=== PATIENT | female | born 1945 | race Caucasian/White ===

== ENCOUNTER 2018-06-10 21:54 | Emergency (ER) | payer OTHER, MEDICAID ==
[~2018-06-10] VITALS: Ht 152.4 cm; Wt 69.4 kg
[2018-06-10 22:07] VITALS: BP 108/61
--- NOTE | 2018-06-10 22:07 | NUR ---
TO BED # 06 AMBULATORY, REPORT GIVEN TO CAT NGUYEN
--- NOTE | 2018-06-10 22:07 | NUR ---
PT PRESENTS TO ED WITH HEAD ACHE AND BILAT EAR PAIN X12 HRS. NO N/V, NO DIZZINESS. PAIN UNRELIEVED WITH HOME MEDICATIONS. 10/02 PAIN. A&OX4. VSS. ER MD AWARE. POSITOINED IN BED FOR COMFORT. CONTINUE TO MONITOR.
[2018-06-11] MEDS ORDERED: KETOROLAC 60 MG/2 ML VIAL IM ONE
[2018-06-11] MEDS ORDERED: PENICILLIN G BENZATHINE L-A 1.2 MU/2 ML SYR IM ONE
[2018-06-11 00:42] VITALS: BP 110/60
--- NOTE | 2018-06-11 00:42 | NUR ---
Patient discharged with v/s stable. Written and verbal after care instructions given and explained. Patient alert, oriented and verbalized understanding of instructions. Ambulatory with steady gait. All questions addressed prior to discharge. ID band removed. Patient advised to follow up with PMD. Rx of PREDNISONE, MOTRIN given. Patient educated on indication of medication including possible reaction and side effects. Opportunity to ask questions provided and answered.
== END 2018-06-11 00:42 | disposition home or self-care (01) ==
LOC: MED 21:54
DX: J02.0 Streptococcal pharyngitis (principal); H92.01 Otalgia, right ear; E11.9 Type 2 diabetes mellitus without complications; I10 Essential (primary) hypertension; Z95.1 Presence of aortocoronary bypass graft; Z98.890 Other specified postprocedural states
CPT/HCPCS: 96372; 99283; J0561; J1885

== ENCOUNTER 2019-02-18 17:53 | Emergency (ER) | payer OTHER, MEDICAID ==
[~2019-02-18] VITALS: Ht 149.9 cm; Wt 71.0 kg
[2019-02-18 18:10] VITALS: BP 127/65
--- NOTE | 2019-02-18 20:13 | NUR ---
DR. MIJARES AT BEDSIDE EXAMINING PATIENT.
--- NOTE | 2019-02-18 20:23 | NUR ---
73 Y/O FEMALE PRESENTS TO ED, C/O COUGHING X5 DAYS. PT STATES HAVING NONPRODUCTIVE COUGH. BILAT CLEAR LUNG SOUNDS. NO SOB/DIFFICULTY BREATHING NOTED. PT ALSO C/O BILAT ACHING EAR PAIN 10/02. NO TRAUMA NOTED, PER PT. NO DRAINAGE NOTED DURING ASSESSMENT. PT DENIES TAKING ANY MEDICATIONS FOR PAIN. PT HAS STEADY GAIT. NO DIZZINESS NOTED. PT VSS. ERMD AWARE. WILL CONTINUE TO MONITOR.
[2019-02-18 20:54] VITALS: BP 127/65
--- NOTE | 2019-02-18 20:54 | NUR ---
Patient discharged with v/s stable. Written and verbal after care instructions given and explained. Patient alert, oriented and verbalized understanding of instructions. Ambulatory with steady gait. All questions addressed prior to discharge. ID band removed. Patient advised to follow up with PMD. Rx of PROMETHAZINE, TAMIFLU given. Patient educated on indication of medication including possible reaction and side effects. Opportunity to ask questions provided and answered.
== END 2019-02-18 20:54 | disposition home or self-care (01) ==
LOC: MED 17:53
DX: J11.1 Influenza due to unidentified influenza virus with other respiratory manifestations (principal); E11.9 Type 2 diabetes mellitus without complications; I10 Essential (primary) hypertension
CPT/HCPCS: 71045; 99283

== ENCOUNTER 2019-03-12 14:20 | Emergency (ER) | payer OTHER, MEDICAID ==
[~2019-03-12] VITALS: Ht 147.3 cm; Wt 69.4 kg
[2019-03-12 14:25] VITALS: BP 149/73
--- NOTE | 2019-03-12 14:54 | NUR ---
PT TO X-RAY BY WHEELCHAIR
[2019-03-12] MEDS ORDERED: ONDANSETRON 4 MG/2 ML VIAL IM ONE (15:15)
[2019-03-12] MEDS ORDERED: MECLIZINE 25 MG TAB PO ONE (15:25)
[2019-03-12 16:21] VITALS: BP 149/73
--- NOTE | 2019-03-12 16:21 | NUR ---
Patient discharged with v/s stable. Written and verbal after care instructions given and explained. Patient alert, oriented and verbalized understanding of instructions. Ambulatory with steady gait. All questions addressed prior to discharge. ID band removed. Patient advised to follow up with PMD. Rx of MOTRIN, MECLIZINE HYDROCHLORIDE given. Patient educated on indication of medication including possible reaction and side effects. Opportunity to ask questions provided and answered.
== END 2019-03-12 16:21 | disposition home or self-care (01) ==
LOC: MED 14:20
DX: R42 Dizziness and giddiness (principal); R06.02 Shortness of breath; R05 Cough; E11.9 Type 2 diabetes mellitus without complications; I10 Essential (primary) hypertension; Z86.79 Personal history of other diseases of the circulatory system; Z95.1 Presence of aortocoronary bypass graft
CPT/HCPCS: 70450; 93005; 96372; 99284; J2405; J8597